=== PATIENT | female | born 1955 | race Caucasian/White ===

== ENCOUNTER 2022-10-16 05:53 | Day surgery (SDC) | payer OTHER, MEDICAID ==
[2022-10-14 13:06] VITALS: BMI 23.6
[2022-10-16] MEDS ORDERED: PROPOFOL 40 ML ONE (06:55)
[2022-10-16] MEDS ORDERED: PROPOFOL 20 ML ONE ×2 (08:05→08:37)
[2022-10-16] MEDS ORDERED: PHENYLEPHRINE-NS 100 MCG/ML 10 ML SYRINGE ONE (08:06)
[2022-10-16] MEDS ORDERED: Succinylcholine 200 MG/10 ml SYRINGE FS ONE (08:06)
[2022-10-16 10:00] LABS: #Basophils 0.1 10x3/uL (0.0-0.2); #Eosinphils 0.4 10x3/uL (0.0-0.5); #Monocytes 0.5 10x3/uL (0.0-1.1); #Neutrophils 4.5 10x3/uL (1.5-8.4); %Basophils 0.7 % (0.0-2.0); %Eosinophils 4.5 % (0.0-6.0); %Lymphocytes 33.9 % (18.0-47.0); %Monocytes 6.6 % (0.0-10.0); %Neutrophils 53.9 % (40.0-75.0); Hematocrit 42.2 % (34.9-44.5); Hemoglobin 13.5 g/dL (12.0-15.5); Mean Corpuscular Hemoglobin 30.8 pg (27.0-33.0); Mean Corpuscular Volume 96.3 fl (81.6-98.3); Mean Platelet Volume 10.7 fl (7.4-10.4); Platelet Count 171 10x3/uL (150-450); Red Blood Cell (RBC) Count 4.38 10x6/uL (3.90-5.03); White Blood Cell (WBC) Count 8.2 10x3/uL (3.5-10.5)
== END 2022-10-16 10:30 | disposition home or self-care (01) ==
LOC: CSHSDC 05:53
PROVIDERS: ATTEND Internal Medicine Gastroenterology
PROC: 0DBN8ZZ Excision of Sigmoid Colon, Via Natural or Artificial Opening Endoscopic (ICD-10-PCS; principal; 2022-10-16)
PROC: 0DBL8ZZ Excision of Transverse Colon, Via Natural or Artificial Opening Endoscopic (ICD-10-PCS; 2022-10-16)
DX: Z12.11 Encounter for screening for malignant neoplasm of colon (principal); D12.3 Benign neoplasm of transverse colon; D12.0 Benign neoplasm of cecum; K64.9 Unspecified hemorrhoids; I10 Essential (primary) hypertension; E78.5 Hyperlipidemia, unspecified; I49.9 Cardiac arrhythmia, unspecified; Z88.5 Allergy status to narcotic agent; Z88.1 Allergy status to other antibiotic agents; Z88.0 Allergy status to penicillin; Z79.899 Other long term (current) drug therapy
CPT/HCPCS: 82378; 85025; 88305; J2704